=== PATIENT | male | born 1940 | race Caucasian/White ===

== ENCOUNTER 2016-06-20 13:40 | Outpatient (CLI) | payer MEDICARE, OTHER | END 2016-06-20 13:41 | disposition home or self-care (01) | DX: R79.9 Abnormal finding of blood chemistry, unspecified (principal); N28.9 Disorder of kidney and ureter, unspecified ==

== ENCOUNTER 2017-03-25 09:00 | Outpatient (CLI) | payer MEDICARE, OTHER ==
[2017-03-25 12:43] LABS: BASOPHILS % (AUTO) 0.4 %; EOSINOPHILS # (AUTO) 0.1 10^3/uL (0.0-0.7); EOSINOPHILS % (AUTO) 1.9 %; HCT - HEMATOCRIT 43.2 % (42.0-52.0); HGB - HEMOGLOBIN 14.8 g/dL (14.0-18.0); LYMPHOCYTES # (AUTO) 1.3 10^3/uL (1.5-3.5); LYMPHOCYTES % (AUTO) 17.3 %; MEAN CORPUSCULAR HEMOGLOBIN 30.3 pg (27.0-31.0); MEAN CORPUSCULAR HGB CONC 34.2 g/dL (32.0-36.0); MEAN CORPUSCULAR VOLUME 88.4 fL (80.0-94.0); MEAN PLATELET VOLUME 8.5 fL (7.4-11.4); MONOCYTES # (AUTO) 0.8 10^3/uL (0.0-1.0); MONOCYTES % (AUTO) 10.7 %; NEUTROPHILS # (AUTO) 5.3 10^3/uL (1.5-6.6); NEUTROPHILS % (AUTO) 69.7 %; NUCLEATED RED BLOOD CELLS AUTO 0.1 /100WBC; RED BLOOD COUNT 4.89 10^6/uL (4.70-6.10); RED CELL DISTRIBUTION WIDTH 13.6 % (12.0-15.0); UNCORRECTED WHITE BLOOD COUNT 7.6 x10^3/uL; WHITE BLOOD COUNT 7.6 x10^3/uL (4.8-10.8)
[2017-03-25 13:25] LABS: ALBUMIN/GLOBULIN RATIO 1.2 (1.0-2.2); BILIRUBIN,TOTAL 0.5 mg/dL (0.2-1.0); BUN - BLOOD UREA NITROGEN 15 mg/dL (6-20); CALCIUM 9.1 mg/dL (8.5-10.3); CARBON DIOXIDE - CO2 27 mmol/L (21-32); CHLORIDE 97 mmol/L (101-111); CHOLESTEROL 146 mg/dL; CREATININE 1.2 mg/dL (0.6-1.2); GFR - MDRD 59 (>89); GLUCOSE 123 mg/dL (70-100); HDL CHOLESTEROL 48 mg/dL; LDL/HDL RATIO 1.4 (<3.6); POTASSIUM 3.3 mmol/L (3.5-5.0); SODIUM 134 mmol/L (135-145); TRIGLYCERIDES 155 mg/dL; VLDL CHOLESTEROL 31 mg/dL
== END 2017-03-25 09:01 | disposition home or self-care (01) ==
LOC: LAB.WCP 09:00
PROVIDERS: ATTEND Physician Assistant Medical
DX: N28.9 Disorder of kidney and ureter, unspecified (principal); R79.9 Abnormal finding of blood chemistry, unspecified; Z51.81 Encounter for therapeutic drug level monitoring; Z79.899 Other long term (current) drug therapy; E78.5 Hyperlipidemia, unspecified; D64.9 Anemia, unspecified
CPT/HCPCS: 36415; 80053; 80061; 85025

== ENCOUNTER 2017-06-05 08:00 | Outpatient (CLI) | payer MEDICARE, OTHER ==
[2017-06-05 13:24] LABS: CALCIUM 8.6 mg/dL (8.5-10.3); CREATININE 1.2 mg/dL (0.6-1.2)
[2017-06-05 13:58] LABS: HB2 TOTAL 15.1 g/dL; HEMOGLOBIN A1C 0.63 g/dL
== END 2017-06-05 08:01 | disposition home or self-care (01) ==
LOC: LAB.WCP 08:00
PROVIDERS: ATTEND Physician Assistant Medical
DX: R73.9 Hyperglycemia, unspecified (principal)
CPT/HCPCS: 36415; 80048; 83036

== ENCOUNTER 2017-12-04 08:32 | Outpatient (CLI) | payer MEDICARE, OTHER ==
[2017-12-04 13:14] LABS: BASOPHILS % (AUTO) 0.5 %; EOSINOPHILS # (AUTO) 0.2 10^3/uL (0.0-0.7); EOSINOPHILS % (AUTO) 2.7 %; HGB - HEMOGLOBIN 13.7 g/dL (14.0-18.0); LYMPHOCYTES # (AUTO) 1.3 10^3/uL (1.5-3.5); LYMPHOCYTES % (AUTO) 16.8 %; MEAN CORPUSCULAR HEMOGLOBIN 30.4 pg (27.0-31.0); MEAN CORPUSCULAR HGB CONC 33.4 g/dL (32.0-36.0); MEAN PLATELET VOLUME 8.6 fL (7.4-11.4); MONOCYTES # (AUTO) 0.9 10^3/uL (0.0-1.0); MONOCYTES % (AUTO) 10.8 %; NEUTROPHILS # (AUTO) 5.5 10^3/uL (1.5-6.6); NEUTROPHILS % (AUTO) 69.2 %; PLT - PLATELET COUNT 234 10^3/uL (130-450); RED BLOOD COUNT 4.49 10^6/uL (4.70-6.10); RED CELL DISTRIBUTION WIDTH 14.2 % (12.0-15.0); WHITE BLOOD COUNT 7.9 x10^3/uL (4.8-10.8)
[2017-12-04 13:38] LABS: ALBUMIN 3.8 g/dL (3.2-5.5); ALBUMIN/GLOBULIN RATIO 1.1 (1.0-2.2); ALKALINE PHOSPHATASE 76 IU/L (42-121); ALT ALANINE AMINOTRANSFERASE 17 IU/L (10-60); AST ASPARTATE AMINOTRANSFERASE 27 IU/L (10-42); BILIRUBIN,TOTAL 0.8 mg/dL (0.2-1.0); BUN - BLOOD UREA NITROGEN 12 mg/dL (6-20); CALCIUM 8.9 mg/dL (8.5-10.3); CARBON DIOXIDE - CO2 30 mmol/L (21-32); CHLORIDE 97 mmol/L (101-111); CHOL/HDL RATIO 2.8 (<5.0); CHOLESTEROL 144 mg/dL; CREATININE 1.2 mg/dL (0.6-1.2); GFR - MDRD 59 (>89); GLUCOSE 124 mg/dL (70-100); HDL CHOLESTEROL 52 mg/dL; LDL CHOLESTEROL,CALCULATED 67 mg/dL; LDL/HDL RATIO 1.3 (<3.6); SODIUM 138 mmol/L (135-145); TOTAL PROTEIN 7.4 g/dL (6.7-8.2); VLDL CHOLESTEROL 25 mg/dL
[2017-12-04 13:43] LABS: HB2 TOTAL 15.5 g/dL; HEMOGLOBIN A1C 0.66 g/dL
== END 2017-12-04 08:33 | disposition home or self-care (01) ==
LOC: LAB.WCP 08:32
PROVIDERS: ATTEND Physician Assistant Medical
DX: R73.9 Hyperglycemia, unspecified (principal); E78.5 Hyperlipidemia, unspecified; D64.9 Anemia, unspecified
CPT/HCPCS: 36415; 80053; 80061; 83036; 83721; 85025

== ENCOUNTER 2018-07-22 08:00 | Outpatient (CLI) | payer MEDICARE, OTHER ==
[2018-07-22 13:37] LABS: HEMOGLOBIN A1C 0.66 g/dL; HEMOGLOBIN A1C % 6.2 % (4.6-6.2)
[2018-07-22 13:55] LABS: ALBUMIN 4.1 g/dL (3.2-5.5); ALBUMIN/GLOBULIN RATIO 1.2 (1.0-2.2); ALKALINE PHOSPHATASE 74 IU/L (42-121); ALT ALANINE AMINOTRANSFERASE 13 IU/L (10-60); AST ASPARTATE AMINOTRANSFERASE 22 IU/L (10-42); BILIRUBIN,TOTAL 0.9 mg/dL (0.2-1.0); BUN - BLOOD UREA NITROGEN 18 mg/dL (6-20); CALCIUM 9.1 mg/dL (8.5-10.3); CARBON DIOXIDE - CO2 28 mmol/L (21-32); CHLORIDE 98 mmol/L (101-111); CHOL/HDL RATIO 2.9 (<5.0); CHOLESTEROL 134 mg/dL; CREATININE 1.4 mg/dL (0.6-1.2); GFR - MDRD 49 (>89); GLUCOSE 134 mg/dL (70-100); HDL CHOLESTEROL 46 mg/dL; LDL CHOLESTEROL,CALCULATED 58 mg/dL; LDL/HDL RATIO 1.3 (<3.6); SODIUM 137 mmol/L (135-145); TOTAL PROTEIN 7.5 g/dL (6.7-8.2); VLDL CHOLESTEROL 30 mg/dL
[2018-07-22 16:31] LABS: BASOPHILS # (AUTO) 0.1 10^3/uL (0.0-0.1); BASOPHILS % (AUTO) 0.9 %; EOSINOPHILS # (AUTO) 0.2 10^3/uL (0.0-0.7); EOSINOPHILS % (AUTO) 2.6 %; HGB - HEMOGLOBIN 13.9 g/dL (14.0-18.0); LYMPHOCYTES # (AUTO) 1.6 10^3/uL (1.5-3.5); LYMPHOCYTES % (AUTO) 19.4 %; MEAN CORPUSCULAR HEMOGLOBIN 29.3 pg (27.0-31.0); MEAN CORPUSCULAR HGB CONC 33.2 g/dL (32.0-36.0); MEAN CORPUSCULAR VOLUME 88.3 fL (80.0-94.0); MEAN PLATELET VOLUME 7.5 fL (7.4-11.4); MONOCYTES # (AUTO) 0.9 10^3/uL (0.0-1.0); MONOCYTES % (AUTO) 11.5 %; NEUTROPHILS # (AUTO) 5.3 10^3/uL (1.5-6.6); NEUTROPHILS % (AUTO) 65.6 %; PLT - PLATELET COUNT 270 10^3/uL (130-450); RED BLOOD COUNT 4.74 10^6/uL (4.70-6.10); RED CELL DISTRIBUTION WIDTH 13.8 % (12.0-15.0); WHITE BLOOD COUNT 8.1 x10^3/uL (4.8-10.8)
== END 2018-07-22 23:59 | disposition home or self-care (01) ==
LOC: LAB.WCP 08:00
PROVIDERS: ATTEND Physician Assistant Medical
DX: R73.9 Hyperglycemia, unspecified (principal); E78.5 Hyperlipidemia, unspecified; D64.9 Anemia, unspecified
CPT/HCPCS: 36415; 80053; 80061; 83036; 83721; 85025

== ENCOUNTER 2018-08-03 08:09 | Outpatient (CLI) | payer MEDICARE, OTHER ==
--- NOTE | 2018-08-03 11:27 | XRAY Report ---
Reason: OSTEOARTHRITIS,KNEE BIALT Procedure Date: 08/03/2018 Accession Number: [id number] / [id number] Procedure: XR - Knee Standing BILAT CPT Code: FULL RESULT: EXAMS: 1. RIGHT KNEE RADIOGRAPHY 2. LEFT KNEE RADIOGRAPHY EXAM DATE:08/03/2018 09:13 AM. CLINICAL HISTORY:Osteoarthritis, bilateral knees. COMPARISON: XR BILAT KNEES 3 VIEWS 10/27/2007 8:10 AM. TECHNIQUE: 3 views each. FINDINGS: Right Knee: Bones: Normal. No fractures or bone lesions. Joints: There is loss of joint space in the medial compartment with [id number] articulation. No significant subchondral sclerosis or osteophyte. Small suprapatellar effusion. Soft Tissues: Normal. No soft tissue swelling. Left Knee: Bones: Normal. No fractures or bone lesions. Joints: Mild asymmetric joint space narrowing of the medial compartment. No significant osteophyte. No effusion. Soft Tissues: Normal. No soft tissue swelling. IMPRESSION: Asymmetric degenerative arthritis medial compartment of the right knee. RADIA
== END 2018-08-03 08:10 | disposition home or self-care (01) ==
LOC: DI 08:09
PROVIDERS: ATTEND Physician Assistant Medical
DX: M17.11 Unilateral primary osteoarthritis, right knee (principal)
CPT/HCPCS: 73565

== ENCOUNTER 2019-01-29 08:00 | Outpatient (CLI) | payer MEDICARE, OTHER ==
[2019-01-29 12:39] LABS: ALBUMIN 4.2 g/dL (3.2-5.5); ALBUMIN/GLOBULIN RATIO 1.2 (1.0-2.2); ALKALINE PHOSPHATASE 83 IU/L (42-121); ALT ALANINE AMINOTRANSFERASE 14 IU/L (10-60); AST ASPARTATE AMINOTRANSFERASE 21 IU/L (10-42); BILIRUBIN,TOTAL 0.6 mg/dL (0.2-1.0); BUN - BLOOD UREA NITROGEN 10 mg/dL (6-20); CALCIUM 8.8 mg/dL (8.5-10.3); CARBON DIOXIDE - CO2 28 mmol/L (21-32); CHLORIDE 93 mmol/L (101-111); CHOL/HDL RATIO 2.7 (<5.0); CHOLESTEROL 129 mg/dL; CREATININE 1.2 mg/dL (0.6-1.2); GFR - MDRD 59 (>89); GLUCOSE 128 mg/dL (70-100); HDL CHOLESTEROL 48 mg/dL; LDL CHOLESTEROL,CALCULATED 57 mg/dL; LDL/HDL RATIO 1.2 (<3.6); SODIUM 133 mmol/L (135-145); TOTAL PROTEIN 7.7 g/dL (6.7-8.2); VLDL CHOLESTEROL 24 mg/dL
== END 2019-01-29 23:59 | disposition home or self-care (01) ==
LOC: LAB.WCP 08:00
PROVIDERS: ATTEND Physician Assistant Medical
DX: E78.5 Hyperlipidemia, unspecified (principal)
CPT/HCPCS: 36415; 80053; 80061; 83721

== ENCOUNTER 2019-02-02 08:00 | Outpatient (CLI) | payer MEDICARE, OTHER ==
[2019-02-02 19:35] LABS: HB2 TOTAL 14.2 g/dL; HEMOGLOBIN A1C 0.58 g/dL; HEMOGLOBIN A1C % 5.9 % (4.6-6.2)
== END 2019-02-02 23:59 | disposition home or self-care (01) ==
LOC: LAB.WCP 08:00
PROVIDERS: ATTEND Physician Assistant Medical
DX: R73.9 Hyperglycemia, unspecified (principal)
CPT/HCPCS: 36415; 83036

== ENCOUNTER 2020-02-08 13:29 | Emergency (ER) | payer MEDICARE, OTHER ==
[2020-02-08] MEDS ORDERED: CHERRY SYRUP 10 ML UDC PO ONE (15:09)
[2020-02-08] MEDS ORDERED: DEXAMETHASONE 10 MG/ML VIAL PO STA (15:09)
--- NOTE | 2020-02-08 15:12 | ED Physician Documentation ---
PD HPI FEVER - Stated complaint Stated Complaint: FEVER - Chief complaint Chief Complaint: General - History obtained from History obtained from: Patient, Family - History of Present Illness Timing - onset: Today Timing duration: Minutes Timing details: Abrupt onset, Now resolved Associated symptoms: Chills, Nasal congestion, Dry cough, Dyspnea Contributing factors: COPD / asthma. No: Sick contact, Immunocompromised Similar symptoms before: Has not had sx before Recently seen: Not recently seen - Additional information Additional information: 79-year-old male with a history of COPD was in his usual state of health this morning when he awoke and he felt hot his took his temperature was elevated and he did not feel well. He was unable to describe his illness further than this. Just does not feel well. He denies any increase in his cough states he does have COPD he denies any change in his bowel or bladder denies any rushing to get to the bathroom. His fever has resolved and he feels well at this time.He has had a headache early in the morning Review of Systems Constitutional: reports: Fever, Fatigue Eyes: denies: Decreased vision Ears: denies: Ear pain Nose: reports: Congestion. denies: Rhinorrhea / runny nose Throat: denies: Sore throat Cardiac: denies: Chest pain / pressure, Palpitations, Pedal edema, Calf pain Respiratory: reports: Dyspnea, Cough GI: denies: Abdominal Pain, Nausea, Vomiting : denies: Dysuria, Frequency PD PAST MEDICAL HISTORY - Past Medical History Cardiovascular: Hypertension, Other Respiratory: Other Endocrine/Autoimmune: None GI: Other : Other HEENT: None Musculoskeletal: Osteoarthritis Derm: None - Past Surgical History Past Surgical History: Yes General: Colonoscopy - Present Medications Home Medications: Ambulatory Orders Medication Instructions Recorded Confirmed Hydrochlorothiazide 25 mg PO DAILY 09/19/13 11/20/15 Lisinopril [Prinivil] 20 mg PO DAILY 09/19/13 11/20/15 Metoprolol Tartrate 100 mg PO DAILY 09/19/13 11/20/15 Simvastatin [Zocor] 20 mg PO DAILY 09/19/13 11/20/15 Aspirin [Aspir-Low] 81 mg PO DAILY 08/14/15 11/20/15 Albuterol 0.5 mg INH DAILY 02/08/20 02/08/20 Amox/Clav 875/125 [Augmentin] 1 each PO Q12H #20 tablet 10/06/20 Cholecalciferol (Vitamin D3) 125 mcg PO DAILY 02/08/20 02/08/20 [Vitamin D3] Guaifenesin/Dextromethorphan 1 each PO DAILY 02/08/20 02/08/20 [Mucinex Dm ER 1,200-60 mg Tab] Methocarbamol [Robaxin-750] 750 mg PO TID PRN 02/08/20 02/08/20 Omeprazole 20 mg PO DAILY 02/08/20 02/08/20 Potassium Chloride [Micro-K] 10 meq PO DAILY 02/08/20 02/08/20 - Allergies Allergies/Adverse Reactions: Allergies Allergy/AdvReac Type Severity Reaction Status Date / Time narcotic sensative AdvReac Nausea Uncoded 02/08/20 13:42 - Social History Does the pt smoke?: No Smoking Status: Never smoker Does the pt drink ETOH?: No Does the pt have substance abuse?: No - Immunizations Immunizations are current?: Yes - POLST Patient has POLST: No PD ED PE NORMAL - Vitals Vital signs reviewed: Yes (Hypertensive) - General General: Alert and oriented X 3, No acute distress, Well developed/nourished - HEENT HEENT: Atraumatic, PERRL, EOMI, Other (Both TMs are erythematous along the umbo with rounding of the umbo and the right is worse than the left. 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, No motor deficit, No sensory deficit, Normal speech Eye Opening: Spontaneous Motor: Obeys Commands Verbal: Oriented GCS Score: 15 - Psych Psych: Normal mood, Normal affect Results - Vitals Vitals: Vital Signs - 24 hr 02/08/20 02/08/20 02/08/20 13:42 14:36 16:00 Temperature 36.4 C L 37.1 C Heart Rate 57 L 66 66 Respiratory 20 18 19 Rate Blood Pressure 131/67 H 125/84 H 116/72 O2 Saturation 98 100 99 Oxygen O2 Source Room air - Labs Labs: Laboratory Tests 02/08/20 02/08/20 02/08/20 15:08 15:33 15:33 WBC 6.8 RBC 4.50 L Hgb 13.6 L Hct 41.2 L MCV 91.6 MCH 30.2 MCHC 33.0 RDW 12.8 Plt Count 242 MPV 9.8 Neut # (Auto) 5.1 Lymph # (Auto) 0.8 L [place] # (Auto) 0.5 Eos # (Auto) 0.3 Baso # (Auto) 0.1 Absolute Nucleated RBC 0.00 Nucleated RBC % 0.0 Sodium 137 Potassium 3.9 Chloride 96 L Carbon Dioxide 30 Anion Gap 11.0 BUN 15 Creatinine 1.6 H Estimated GFR (MDRD) 42 L Glucose 127 H Lactic Acid Calcium 9.2 Total Bilirubin 0.8 AST 19 ALT 13 Alkaline Phosphatase 89 Total Protein 7.3 Albumin 4.1 Globulin 3.2 Albumin/Globulin Ratio 1.3 Lipase 25 Urine Color YELLOW Urine Clarity CLEAR Urine pH 7.0 Ur Specific [place] 1.020 Urine Protein NEGATIVE Urine Glucose (UA) NEGATIVE Urine Ketones TRACE Urine Occult Blood NEGATIVE Urine Nitrite NEGATIVE Urine Bilirubin NEGATIVE Urine Urobilinogen 1 (NORMAL) Ur Leukocyte Esterase NEGATIVE Ur Microscopic Review NOT INDICATED Urine Culture Comments NOT INDICATED 02/08/20 15:33 WBC RBC Hgb Hct MCV MCH MCHC RDW Plt Count MPV Neut # (Auto) Lymph # (Auto) [place] # (Auto) Eos # (Auto) Baso # (Auto) Absolute Nucleated RBC Nucleated RBC % Sodium Potassium Chloride Carbon Dioxide Anion Gap BUN Creatinine Estimated GFR (MDRD) Glucose Lactic Acid 1.6 Calcium Total Bilirubin AST ALT Alkaline Phosphatase Total Protein Albumin Globulin Albumin/Globulin Ratio Lipase Urine Color Urine Clarity Urine pH Ur Specific [place] Urine Protein Urine Glucose (UA) Urine Ketones Urine Occult Blood Urine Nitrite Urine Bilirubin Urine Urobilinogen Ur Leukocyte Esterase Ur Microscopic Review Urine Culture Comments - Rads (name of study) chest Radiology: Prelim report reviewed (Impression: No acute cardiopulmonary process demonstrated radiographically.), EMP read indepedently, See rad report PD MEDICAL DECISION MAKING - ED course Complexity details: reviewed results, re-evaluated patient, considered differential, d/w patient, d/w family ED course: 79-year-old male with a history of COPD was febrile this morning did not feel well he had no other specifics for his illness. On exam he has otitis bilaterally. He had no other findings on physical exam and laboratory and ancillary exam is also without findings specifically. He does look a bit dry on his chest x-ray. Departure - Departure Disposition: Home, Self Care Clinical Impression: Dehydration Otitis media Qualifiers: Otitis media type: suppurative Chronicity: acute Laterality: bilateral Recurrence: non-recurrent Spontaneous tympanic membrane rupture: without spontaneous rupture Qualified Code(s): H66.003 - Acute suppurative otitis media without spontaneous rupture of ear drum, bilateral Condition: Stable Instructions: ED Otitis Media Acute Adult Follow-Up: Jazmin Painter PA-C [Primary Care Provider] - Prescriptions: Amox/Clav 875/125 [Augmentin] 1 each PO Q12H #20 tablet
--- NOTE | 2020-02-08 15:35 | XRAY Report ---
PROCEDURE: Chest 1 View X-Ray INDICATIONS: Shortness of breath TECHNIQUE: One view of the chest was acquired. COMPARISON: 04/17/2017 FINDINGS: Surgical changes and devices: None. Lungs and pleura: No pleural effusions or pneumothorax. Lungs are clear. Mediastinum: Mediastinal contours appear normal. Heart size is normal. Bones and chest wall: No suspicious bony lesions. Osteophytic changes of both humeral joints. Overl [place] soft tissues appear unremarkable. IMPRESSION: No acute cardiac pulmonary process demonstrated radiographically. Reviewed by: Corona Amador MD on 02/08/2020 3:34 PM PDT Approved by: Corona Amador MD on 02/08/2020 3:34 PM PDT Station ID: [id number]
[2020-02-08 15:41] LABS: BILIRUBIN,URINE NEGATIVE (NEGATIVE); GLUCOSE, URINE (UA) NEGATIVE (NEGATIVE); KETONES,URINE (UA) TRACE mg/dL (NEGATIVE); LEUKOCYTE ESTERASE, URINE NEGATIVE (NEGATIVE); NITRITE,URINE NEGATIVE (NEGATIVE); OCCULT BLOOD,URINE NEGATIVE (NEGATIVE); PROTEIN,URINE NEGATIVE (NEGATIVE); UROBILINOGEN,URINE 1 (NORMAL) E.U./dL (NORMAL)
[2020-02-08 15:44] LABS: CLARITY,URINE CLEAR (CLEAR)
[2020-02-08 15:52] LABS: BASOPHILS # (AUTO) 0.1 10^3/uL (0.0-0.1); BASOPHILS % (AUTO) 0.7 %; EOSINOPHILS # (AUTO) 0.3 10^3/uL (0.0-0.7); HGB - HEMOGLOBIN 13.6 g/dL (14.0-18.0); LYMPHOCYTES # (AUTO) 0.8 10^3/uL (1.5-3.5); LYMPHOCYTES % (AUTO) 12.1 %; MEAN CORPUSCULAR HEMOGLOBIN 30.2 pg (27.0-31.0); MEAN CORPUSCULAR VOLUME 91.6 fL (80.0-94.0); MEAN PLATELET VOLUME 9.8 fL (7.4-11.4); MONOCYTES # (AUTO) 0.5 10^3/uL (0.0-1.0); MONOCYTES % (AUTO) 7.4 %; NEUTROPHILS # (AUTO) 5.1 10^3/uL (1.5-6.6); NEUTROPHILS % (AUTO) 75.4 %; PLT - PLATELET COUNT 242 10^3/uL (130-450); RED CELL DISTRIBUTION WIDTH 12.8 % (12.0-15.0); WHITE BLOOD COUNT 6.8 x10^3/uL (4.8-10.8)
[2020-02-08 16:00] LABS: ALBUMIN 4.1 g/dL (3.2-5.5); ALBUMIN/GLOBULIN RATIO 1.3 (1.0-2.2); BILIRUBIN,TOTAL 0.8 mg/dL (0.2-1.0); CALCIUM 9.2 mg/dL (8.5-10.3); CREATININE 1.6 mg/dL (0.6-1.2); TOTAL PROTEIN 7.3 g/dL (6.7-8.2)
[2020-02-08] MEDS ORDERED: SODIUM CHLORIDE 0.9% 1,000 ML IV STA (16:11)
[2020-02-08 17:30] VITALS: BP 126/78
== END 2020-02-08 17:35 | disposition home or self-care (01) ==
LOC: ED 13:29
DX: E86.0 Dehydration (principal); H66.003 Acute suppurative otitis media without spontaneous rupture of ear drum, bilateral
CPT/HCPCS: 36415; 71045; 80053; 81003; 83605; 83690; 85025; 87040; 96360; 99283; 99284; A9270; 81001; 87086

== ENCOUNTER 2020-03-31 08:00 | Outpatient (CLI) | payer MEDICARE, OTHER ==
[2020-03-31 19:57] LABS: ALBUMIN/GLOBULIN RATIO 1.2 (1.0-2.2); ALKALINE PHOSPHATASE 87 IU/L (42-121); ALT ALANINE AMINOTRANSFERASE 11 IU/L (10-60); AST ASPARTATE AMINOTRANSFERASE 17 IU/L (10-42); BILIRUBIN,TOTAL 0.6 mg/dL (0.2-1.0); BUN - BLOOD UREA NITROGEN 14 mg/dL (6-20); CALCIUM 8.8 mg/dL (8.5-10.3); CARBON DIOXIDE - CO2 28 mmol/L (21-32); CHLORIDE 102 mmol/L (101-111); CHOL/HDL RATIO 3.1 (<5.0); CHOLESTEROL 151 mg/dL; CREATININE 1.5 mg/dL (0.6-1.2); GLUCOSE 92 mg/dL (70-100); HDL CHOLESTEROL 49 mg/dL; LDL CHOLESTEROL,CALCULATED 78 mg/dL; LDL/HDL RATIO 1.6 (<3.6); SODIUM 138 mmol/L (135-145); TOTAL PROTEIN 7.4 g/dL (6.7-8.2); VLDL CHOLESTEROL 24 mg/dL
[2020-03-31 20:58] LABS: HEMOGLOBIN A1c% 5.7 % (4.27-6.07)
== END 2020-03-31 23:59 | disposition home or self-care (01) ==
LOC: LAB.WCP 08:00
PROVIDERS: ATTEND Physician Assistant Medical
DX: R73.9 Hyperglycemia, unspecified (principal); E78.5 Hyperlipidemia, unspecified
CPT/HCPCS: 36415; 80053; 80061; 83036; 83721

== ENCOUNTER 2020-04-05 08:37 | Outpatient (CLI) | payer MEDICARE, OTHER | END 2020-04-05 08:38 | disposition critical access hospital (66) | LOC: EMS 08:37 | PROVIDERS: ATTEND Surgery | DX: M54.9 Dorsalgia, unspecified (principal); R06.00 Dyspnea, unspecified | CPT/HCPCS: A0425; A0427 ==

== ENCOUNTER 2020-04-05 08:41 | Emergency (ER) | payer MEDICARE, OTHER ==
--- NOTE | 2020-04-05 08:47 | ED Physician Documentation ---
PD HPI BACK PAIN - Stated complaint Stated Complaint: GLF - History obtained from History obtained from: Patient - Additional information Additional information: 79-year-old gentleman with history of COPD, has been having some vomiting and d iarrhea over the last couple of days. Last night he had a simple mechanical fall hitting his back on the door. Pain was not too bad at first but now this morning he is having some difficulty with movement, pain taking a deep breath and more shortness of breath than normal. He declines pain medication on initial evaluation. No other injuries. No loss of consciousness or syncope. Review of Systems Ten Systems: 10 systems reviewed and negative Constitutional: denies: Fever, Chills Cardiac: denies: Chest pain / pressure Respiratory: reports: Dyspnea, Cough GI: denies: Abdominal Pain, Nausea, Vomiting Musculoskeletal: denies: Pain with weight bearing Neurologic: denies: Headache, Head injury, LOC PD PAST MEDICAL HISTORY - Past Medical History Cardiovascular: Hypertension, Other Respiratory: Other Endocrine/Autoimmune: None GI: Other : Other HEENT: None Musculoskeletal: Osteoarthritis Derm: None - Past Surgical History Past Surgical History: Yes General: Colonoscopy - Present Medications Home Medications: Ambulatory Orders Medication Instructions Recorded Confirmed Hydrochlorothiazide 25 mg PO DAILY 09/19/13 11/20/15 Lisinopril [Prinivil] 20 mg PO DAILY 09/19/13 11/20/15 Metoprolol Tartrate 100 mg PO DAILY 09/19/13 11/20/15 Simvastatin [Zocor] 20 mg PO DAILY 09/19/13 11/20/15 Aspirin [Aspir-Low] 81 mg PO DAILY 08/14/15 11/20/15 Albuterol 0.5 mg INH DAILY 02/08/20 02/08/20 Cholecalciferol (Vitamin D3) 125 mcg PO DAILY 02/08/20 02/08/20 [Vitamin D3] Guaifenesin/Dextromethorphan 1 each PO DAILY 02/08/20 02/08/20 [Mucinex Dm ER 1,200-60 mg Tab] Methocarbamol [Robaxin-750] 750 mg PO TID PRN 02/08/20 02/08/20 Omeprazole 20 mg PO DAILY 02/08/20 02/08/20 Potassium Chloride [Micro-K] 20 meq PO DAILY 02/08/20 02/08/20 Budesonide [Pulmicort] 0.25 mg IH DAILY 04/05/20 04/05/20 Ipratropium/Albuterol [Duoneb] 1 DAILY 04/05/20 - Allergies Allergies/Adverse Reactions: Allergies Allergy/AdvReac Type Severity Reaction Status Date / Time narcotic sensative AdvReac Nausea Uncoded 04/05/20 08:53 - Social History Does the pt smoke?: No Smoking Status: Never smoker Does the pt drink ETOH?: No Does the pt have substance abuse?: No - Immunizations Immunizations are current?: Yes - POLST Patient has POLST: No PD ED PE NORMAL - Vitals Vital signs reviewed: Yes - General General: Alert and oriented X 3, No acute distress - HEENT HEENT: PERRL, EOMI - Neck Neck: Supple, no meningeal sign, No bony TTP - Cardiac Cardiac: RRR, No murmur - Respiratory Respiratory: No respiratory distress, Other (Diminished throughout with mild expiratory wheezes, per the paramedics it is better after albuterol in route) - Abdomen Abdomen: Non tender - Back Back: Other (There is a large contusion/abrasion over the mid and upper thoracic spine and some tenderness to the right posterior ribs.) - Derm Derm: Normal color, Warm and dry - Extremities Extremities: No edema, No calf tenderness / cord - Neuro Neuro: Alert and oriented X 3, Normal speech Results - Vitals Vitals: Vital Signs - 24 hr 04/05/20 04/05/20 08:41 09:00 Temperature 36.6 C Heart Rate 75 78 Respiratory 18 15 Rate Blood Pressure 123/96 H 144/103 H O2 Saturation 97 95 Oxygen O2 Source Room air - Labs Labs: Laboratory Tests 04/05/20 04/05/20 09:09 09:09 WBC 7.0 RBC 4.56 L Hgb 13.6 L Hct 43.4 MCV 95.2 H MCH 29.8 MCHC 31.3 L RDW 12.9 Plt Count 206 MPV 10.3 Neut # (Auto) 5.2 Lymph # (Auto) 1.1 L [place] # (Auto) 0.5 Eos # (Auto) 0.3 Baso # (Auto) 0.0 Absolute Nucleated RBC 0.00 Nucleated RBC % 0.0 Sodium 141 Potassium 3.7 Chloride 103 Carbon Dioxide 26 Anion Gap 12.0 BUN 13 Creatinine 1.3 H Estimated GFR (MDRD) 54 L Glucose 126 H Calcium 9.0 Total Bilirubin 0.7 AST 19 ALT 12 Alkaline Phosphatase 85 Total Protein 7.1 Albumin 4.0 Globulin 3.1 Albumin/Globulin Ratio 1.3 Lipase 26 - Rads (name of study) CT Chest and T spine Radiology: EMP read contemporaneously (Probably a mild T8 compression fracture without other fractures. Mild emphysema without acute pulmonary findings.) PD MEDICAL DECISION MAKING - ED course ED course: 79-year-old gentleman presents after a fall last night, this was preceded by vomiting and diarrhea over the last few days which he felt was from a new steroid inhaled prescription, budesonide. There was no loss of consciousness or syncope. From a breathing standpoint he is already feeling better after albuterol on the way here. Imaging demonstrates a possible T8 mild compression fracture. I offered either oral steroids or pain medications for this which he declined, he also does not want any meds for his GI symptoms. He seems to want to minimize how many medications he is taking. Also declined a second breathing treatment here. Departure - Departure Disposition: 01 Home, Self Care Clinical Impression: Fall Qualifiers: Encounter type: initial encounter Qualified Code(s): W19.XXXA - Unspecified fall, initial encounter Compression fracture of T8 vertebra Qualifiers: Encounter type: initial encounter Qualified Code(s): S22.060A - Wedge compression fracture of T7-T8 vertebra, initial encounter for closed fracture COPD (chronic obstructive pulmonary disease) Qualifiers: COPD type: chronic bronchitis Chronic bronchitis type: unspecified Qualified Code(s): J42 - Unspecified chronic bronchitis Condition: Good Record reviewed to determine appropriate education?: Yes Instructions: ED Fx Comp Vertebral Comments: Imaging today demonstrates what is probably a very mild compression fracture of your eighth thoracic vertebrae. No specific treatment is necessary and you can take Tylenol as needed for pain. Return if worsening or if new symptoms develop. Follow-up with your doctor within the week for recheck.
[2020-04-05 09:15] LABS: BASOPHILS % (AUTO) 0.4 %; EOSINOPHILS # (AUTO) 0.3 10^3/uL (0.0-0.7); EOSINOPHILS % (AUTO) 3.7 %; HGB - HEMOGLOBIN 13.6 g/dL (14.0-18.0); LYMPHOCYTES # (AUTO) 1.1 10^3/uL (1.5-3.5); MEAN CORPUSCULAR HEMOGLOBIN 29.8 pg (27.0-31.0); MEAN CORPUSCULAR HGB CONC 31.3 g/dL (32.0-36.0); MEAN CORPUSCULAR VOLUME 95.2 fL (80.0-94.0); MEAN PLATELET VOLUME 10.3 fL (7.4-11.4); MONOCYTES # (AUTO) 0.5 10^3/uL (0.0-1.0); NEUTROPHILS # (AUTO) 5.2 10^3/uL (1.5-6.6); NEUTROPHILS % (AUTO) 73.5 %; PLT - PLATELET COUNT 206 10^3/uL (130-450); RED BLOOD COUNT 4.56 10^6/uL (4.70-6.10); RED CELL DISTRIBUTION WIDTH 12.9 % (12.0-15.0)
[2020-04-05 09:28] LABS: ALBUMIN/GLOBULIN RATIO 1.3 (1.0-2.2); BILIRUBIN,TOTAL 0.7 mg/dL (0.2-1.0); CREATININE 1.3 mg/dL (0.6-1.2); TOTAL PROTEIN 7.1 g/dL (6.7-8.2)
--- NOTE | 2020-04-05 09:32 | CT Report ---
PROCEDURE: CHEST WO INDICATIONS: Mid/upper back injury TECHNIQUE: Noncontrast 5 mm thick sections acquired from the pulmonary apices to the posterior costophrenic angl es. 7 mm thick coronal and sagittal MIP reformats were then acquired. For radiation dose reduction, the following was used: automated exposure control, adjustment of mA and/or kV according to patient size. COMPARISON: 08/14/2015 CT chest with contrast FINDINGS: Image quality: Excellent. Lungs and pleura: Very mild centrilobular emphysema. No acute air space opacities. No pleural effus ions or pneumothorax. Central and peripheral airways are patent and normal in caliber. Mediastinum: Heart size is normal. No pericardial effusion. No mediastinal adenopathy by size crit eria. Thoracic aorta and central pulmonary arteries are normal in size. Esophagus is normal in jose shravan. No hiatal hernia. Bones and chest wall: No suspicious bony lesions. No vertebral body compression fractures. No axil tianna or supraclavicular adenopathy by size criteria. The thyroid is normal in size. Abdomen: Visualized upper abdominal solid organs and bowel loops appear normal in the absence of con trast. Remote cholecystectomy. IMPRESSION: 1. Very mild centrilobular emphysema. 2. Otherwise unremarkable noncontrast chest CT. No acute fracture identified. Reviewed by: Aidan Denny MD on 04/05/2020 9:31 AM [facility] Approved by: Aidan Denny MD on 04/05/2020 9:31 AM PST Station ID: [id number]
--- NOTE | 2020-04-05 09:38 | CT Report ---
PROCEDURE: THORACIC SPINE WO INDICATIONS: Mid/upper back injury TECHNIQUE: Noncontrast 3 mm thick sections acquired through the region of interest in the thoracic spine. Sagit carrie and coronal reformats were then constructed. For radiation dose reduction, the following was used : automated exposure control, adjustment of mA and/or kV according to patient size. COMPARISON: CT chest dated 08/14/2015, CT chest from today. FINDINGS: Image quality: Excellent. Bones: There is normal overall bony alignment. There is a probable very subtle acute superior endpla te compression fracture of T8, with approximately 20% midportion vertebral body height loss. No other compression fractures identified. No suspicious sclerotic or lytic bony lesions. Central spinal can al is of normal overall caliber. Soft tissues: No paravertebral masses or hematomas. Visualized posteromedial lungs appear clear. IMPRESSION: Probable mild acute superior endplate compression of T8. Comment: Consider MRI to identify the presence or absence of edema and T8, and establish fracture acu ity. Reviewed by: Aidan Denny MD on 04/05/2020 9:37 AM PST Approved by: Aidan Denny MD on 04/05/2020 9:37 AM PST Station ID: [id number]
[2020-04-05 09:56] VITALS: BP 140/83
== END 2020-04-05 10:11 | disposition home or self-care (01) ==
LOC: EDUNIT# → ED 08:41
DX: S22.060A Wedge compression fracture of T7-T8 vertebra, initial encounter for closed fracture (principal); W01.198A Fall on same level from slipping, tripping and stumbling with subsequent striking against other object, initial encounter; Y93.89 Activity, other specified; J43.2 Centrilobular emphysema; R11.10 Vomiting, unspecified; R19.7 Diarrhea, unspecified; I10 Essential (primary) hypertension; Z79.82 Long term (current) use of aspirin
CPT/HCPCS: 36415; 71250; 72128; 80053; 83690; 85025; 99284

== ENCOUNTER 2020-04-17 10:34 | Emergency (ER) | payer MEDICARE, OTHER ==
--- NOTE | 2020-04-17 11:01 | ED Physician Documentation ---
PD HPI DYSPNEA - Stated complaint Stated Complaint: SOA - Chief complaint Chief Complaint: Resp - History obtained from History obtained from: Patient - Additional information Additional information: He had a ground-level fall a couple of weeks ago hitting his back and the right side of the chest. He was seen here and CT of the chest and thoracic spine was done on April 05 demonstrating a mild acute superior endplate fracture of T8. Since then he has had progressive shortness of breath and back and chest pain especially with coughing although his cough is not any worse than usual given his usual COPD. Review of Systems Constitutional: reports: Reviewed and negative Eyes: reports: Reviewed and negative Ears: reports: Reviewed and negative Nose: reports: Reviewed and negative Throat: reports: Reviewed and negative Cardiac: reports: Reviewed and negative PD PAST MEDICAL HISTORY - Past Medical History Cardiovascular: Hypertension, Other Respiratory: Other Endocrine/Autoimmune: None GI: Other : Other HEENT: None Musculoskeletal: Osteoarthritis Derm: None - Past Surgical History Past Surgical History: Yes General: Colonoscopy - Present Medications Home Medications: Ambulatory Orders Medication Instructions Recorded Confirmed Hydrochlorothiazide 25 mg PO DAILY 09/19/13 11/20/15 Lisinopril [Prinivil] 20 mg PO DAILY 09/19/13 11/20/15 Metoprolol Tartrate 100 mg PO DAILY 09/19/13 11/20/15 Simvastatin [Zocor] 20 mg PO DAILY 09/19/13 11/20/15 Aspirin [Aspir-Low] 81 mg PO DAILY 08/14/15 11/20/15 Albuterol 0.5 mg INH DAILY 02/08/20 02/08/20 Cholecalciferol (Vitamin D3) 125 mcg PO DAILY 02/08/20 02/08/20 [Vitamin D3] Guaifenesin/Dextromethorphan 1 each PO DAILY 02/08/20 02/08/20 [Mucinex Dm ER 1,200-60 mg Tab] Methocarbamol [Robaxin-750] 750 mg PO TID PRN 02/08/20 02/08/20 Omeprazole 20 mg PO DAILY 02/08/20 02/08/20 Potassium Chloride [Micro-K] 20 meq PO DAILY 02/08/20 02/08/20 Budesonide [Pulmicort] 0.25 mg IH DAILY 04/05/20 04/05/20 Ipratropium/Albuterol [Duoneb] 1 DAILY 04/05/20 Ondansetron Odt [Zofran] 4 mg TL Q6H PRN #20 tablet 04/05/20 Oxycodone HCl/Acetaminophen 1 - 2 each PO Q6H PRN #20 tablet 04/05/20 [Percocet 5-325 mg Tablet] Oxycodone HCl/Acetaminophen 1 - 2 each PO Q6H PRN #30 tablet 04/17/20 [Percocet 5-325 mg Tablet] - Allergies Allergies/Adverse Reactions: Allergies Allergy/AdvReac Type Severity Reaction Status Date / Time narcotic sensative AdvReac Nausea Uncoded 04/17/20 10:43 - Social History Does the pt smoke?: No Smoking Status: Never smoker Does the pt drink ETOH?: No Does the pt have substance abuse?: No - Immunizations Immunizations are current?: Yes - POLST Patient has POLST: No PD ED PE NORMAL - Vitals Vital signs reviewed: Yes - General General: Alert and oriented X 3, No acute distress - HEENT HEENT: PERRL, EOMI - Neck Neck: Supple, no meningeal sign, No bony TTP - Cardiac Cardiac: RRR, No murmur - Respiratory Respiratory: Other (Diminished breath sounds throughout with mild expiratory wheezes. Minimally labored but speaking full sentences.) - Abdomen Abdomen: Non tender - Back Back: No CVA TTP, No spinal TTP - Derm Derm: Normal color, Warm and dry - Extremities Extremities: No edema, No calf tenderness / cord - Neuro Neuro: Alert and oriented X 3, Normal speech Results - Vitals Vitals: Vital Signs - 24 hr 04/17/20 04/17/20 10:39 11:00 Temperature 36.7 C Heart Rate 90 83 Respiratory 16 14 Rate Blood Pressure 150/96 H 95/77 O2 Saturation 95 99 Oxygen O2 Source Room air - EKG (time done) 1106 Rate: Rate (enter#) (77) Rhythm: NSR (He has a sinus pause following A PVC) Smilax: Normal Intervals: Normal [place] QRS: Normal Ischemia: Non specific changes. No: ST elevation c/w ischemia, ST depression PD MEDICAL DECISION MAKING - ED course ED course: 79-year-old gentleman with known T8 compression fracture that is 2 weeks old has run out of his narcotics and pain is worse again. He is feeling better after a shot of Dilaudid. Chest x-ray interpreted contemporaneously by me shows no acute issues. Departure - Departure Disposition: 01 Home, Self Care Clinical Impression: Compression fracture of T8 vertebra Qualifiers: Encounter type: initial encounter Qualified Code(s): S22.060A - Wedge compression fracture of T7-T8 vertebra, initial encounter for closed fracture Condition: Good Record reviewed to determine appropriate education?: Yes Instructions: ED Fx Comp Vertebral Prescriptions: Oxycodone HCl/Acetaminophen [Percocet 5-325 mg Tablet] 1 - 2 each PO Q6H PRN #30 tablet PRN Reason: pain Comments: Call your doctor to arrange a follow-up appointment, make the next available appointment. In the interim, return anytime if worse or if new symptoms develop. Do not drink or drive while taking narcotic pain medication. Note that many narcotic pain relievers also contain Tylenol/acetaminophen. Please ensure that your total dose of acetaminophen from all sources does not exceed 3 g (3000 mg) per day. You may get constipated while on this medication. Take a stool softener such as Colace twice a day while you are on it. Also add an [id number] laxative such as senna or MiraLAX on any day that you do not have a bowel movement. If you received a narcotic pain medication or sedative while in the emergency department, do not drive for the next 24 hours.
[2020-04-17] MEDS ORDERED: CHERRY SYRUP 10 ML UDC PO ONE (11:03)
[2020-04-17] MEDS ORDERED: ONDANSETRON ODT 4 MG TABLET TL STA (11:03)
[2020-04-17] MEDS ORDERED: HYDROmorphone 1 MG/ML CARPUJECT IM STA (11:03)
[2020-04-17] MEDS ORDERED: DEXAMETHASONE 10 MG/ML VIAL PO STA (11:03)
--- NOTE | 2020-04-17 11:38 | XRAY Report ---
PROCEDURE: Chest 1 View X-Ray INDICATIONS: Chest pain TECHNIQUE: One view of the chest was acquired. COMPARISON: CXR 02/08/2020. CT thoracic spine at 04/05/2020. FINDINGS: Surgical changes and devices: None. Lungs and pleura: No pleural effusions or pneumothorax. Lungs are clear. Mediastinum: Mediastinal contours appear normal. Heart size is normal. Bones and chest wall: No suspicious bony lesions. Overlying soft tissues appear unremarkable. IMPRESSION: No acute cardiopulmonary abnormality. Reviewed by: Jovan Herrera MD on 04/17/2020 10:36 AM [facility] Approved by: Jovan Herrera MD on 04/17/2020 10:36 AM [facility] Station ID: [id number]
[2020-04-17 12:18] VITALS: BP 143/85
== END 2020-04-17 12:25 | disposition home or self-care (01) ==
LOC: ED 10:34
DX: S22.060A Wedge compression fracture of T7-T8 vertebra, initial encounter for closed fracture (principal); W18.30XA Fall on same level, unspecified, initial encounter; J44.9 Chronic obstructive pulmonary disease, unspecified; R07.9 Chest pain, unspecified; I49.3 Ventricular premature depolarization; I10 Essential (primary) hypertension; Z79.82 Long term (current) use of aspirin
CPT/HCPCS: 71045; 93005; 96372; 99284; A9270; J1170; Q0162; 80053; 83690; 84484; 85025

== ENCOUNTER 2020-11-09 16:49 | Outpatient (CLI) | payer MEDICARE, OTHER ==
[2020-11-09 20:51] LABS: BASOPHILS # (AUTO) 0.1 10^3/uL (0.0-0.1); BASOPHILS % (AUTO) 0.5 %; EOSINOPHILS # (AUTO) 0.5 10^3/uL (0.0-0.7); HCT - HEMATOCRIT 42.9 % (42.0-52.0); HGB - HEMOGLOBIN 14.1 g/dL (14.0-18.0); LYMPHOCYTES # (AUTO) 1.3 10^3/uL (1.5-3.5); LYMPHOCYTES % (AUTO) 14.1 %; MEAN CORPUSCULAR HEMOGLOBIN 30.3 pg (27.0-31.0); MEAN CORPUSCULAR HGB CONC 32.9 g/dL (32.0-36.0); MEAN CORPUSCULAR VOLUME 92.3 fL (80.0-94.0); MEAN PLATELET VOLUME 10.1 fL (7.4-11.4); MONOCYTES # (AUTO) 0.7 10^3/uL (0.0-1.0); NEUTROPHILS # (AUTO) 6.6 10^3/uL (1.5-6.6); NEUTROPHILS % (AUTO) 71.6 %; PLT - PLATELET COUNT 315 10^3/uL (130-450); RED BLOOD COUNT 4.65 10^6/uL (4.70-6.10); RED CELL DISTRIBUTION WIDTH 12.9 % (12.0-15.0); WHITE BLOOD COUNT 9.2 x10^3/uL (4.8-10.8)
[2020-11-09 20:59] LABS: ALBUMIN 4.1 g/dL (3.2-5.5); ALBUMIN/GLOBULIN RATIO 1.2 (1.0-2.2); BILIRUBIN,TOTAL 0.7 mg/dL (0.2-1.0); CALCIUM 9.4 mg/dL (8.5-10.3); CREATININE 1.4 mg/dL (0.6-1.2); POTASSIUM 4.3 mmol/L (3.5-5.0); TOTAL PROTEIN 7.6 g/dL (6.7-8.2)
== END 2020-11-09 16:50 | disposition home or self-care (01) ==
LOC: LAB.N 16:49
PROVIDERS: ATTEND Physician Assistant Medical
DX: N28.9 Disorder of kidney and ureter, unspecified (principal); D64.9 Anemia, unspecified
CPT/HCPCS: 36415; 80053; 85025

== ENCOUNTER 2021-02-09 14:06 | Outpatient (CLI) | payer MEDICARE, OTHER ==
--- NOTE | 2021-02-09 14:41 | XRAY Report ---
PROCEDURE: Chest 2 View X-Ray INDICATIONS: COPD TECHNIQUE: 2 view(s) of the chest. COMPARISON: 04/17/2020. FINDINGS: Surgical changes and devices: None. Lungs and pleura: No pleural effusions or pneumothorax. There is hyperinflation. No focal infiltrate . Mediastinum: Mildly tortuous thoracic aorta is seen. Heart size is normal. Bones and chest wall: No suspicious bony abnormalities. Soft tissues appear unremarkable. IMPRESSION: No acute cardiopulmonary pathology. COPD. Reviewed by: Fede Jernigan MD on 02/09/2021 2:39 PM PDT Approved by: Fede Jernigan MD on 02/09/2021 2:39 PM PDT Station ID: [id number]
== END 2021-02-09 14:07 | disposition home or self-care (01) ==
LOC: DI 14:06
PROVIDERS: ATTEND Physician Assistant Medical
DX: J44.9 Chronic obstructive pulmonary disease, unspecified (principal)

== ENCOUNTER 2021-03-26 15:37 | Outpatient (CLI) | payer MEDICARE, OTHER ==
[2021-03-26 16:16] LABS: BASOPHILS # (AUTO) 0.1 10^3/uL (0.0-0.1); BASOPHILS % (AUTO) 0.6 %; EOSINOPHILS # (AUTO) 0.4 10^3/uL (0.0-0.7); EOSINOPHILS % (AUTO) 5.3 %; HCT - HEMATOCRIT 40.9 % (42.0-52.0); HGB - HEMOGLOBIN 13.3 g/dL (14.0-18.0); LYMPHOCYTES # (AUTO) 1.1 10^3/uL (1.5-3.5); LYMPHOCYTES % (AUTO) 13.3 %; MEAN CORPUSCULAR HEMOGLOBIN 30.1 pg (27.0-31.0); MEAN CORPUSCULAR HGB CONC 32.5 g/dL (32.0-36.0); MEAN CORPUSCULAR VOLUME 92.5 fL (80.0-94.0); MEAN PLATELET VOLUME 9.5 fL (7.4-11.4); MONOCYTES # (AUTO) 0.6 10^3/uL (0.0-1.0); MONOCYTES % (AUTO) 7.5 %; NEUTROPHILS # (AUTO) 5.9 10^3/uL (1.5-6.6); NEUTROPHILS % (AUTO) 72.8 %; PLT - PLATELET COUNT 236 10^3/uL (130-450); RED BLOOD COUNT 4.42 10^6/uL (4.70-6.10); RED CELL DISTRIBUTION WIDTH 13.1 % (12.0-15.0); WHITE BLOOD COUNT 8.1 x10^3/uL (4.8-10.8)
[2021-03-26 16:27] LABS: ALBUMIN 4.2 g/dL (3.2-5.5); ALBUMIN/GLOBULIN RATIO 1.4 (1.0-2.2); BILIRUBIN,TOTAL 0.5 mg/dL (0.2-1.0); CALCIUM 8.9 mg/dL (8.5-10.3); CREATININE 1.2 mg/dL (0.6-1.2); POTASSIUM 3.6 mmol/L (3.5-5.0); TOTAL PROTEIN 7.3 g/dL (6.7-8.2)
== END 2021-03-26 15:38 | disposition home or self-care (01) ==
LOC: LAB 15:37
PROVIDERS: ATTEND Nurse Practitioner
DX: Z79.899 Other long term (current) drug therapy (principal)
CPT/HCPCS: 36415; 80053; 85025

== ENCOUNTER 2021-04-05 09:01 | Outpatient (CLI) | payer MEDICARE, OTHER ==
[2021-04-07 10:16] LABS: ANA SCREEN NEGATIVE (NEGATIVE)
== END 2021-04-05 09:02 | disposition home or self-care (01) ==
LOC: LAB 09:01
PROVIDERS: ATTEND Nurse Practitioner Family
DX: R21 Rash and other nonspecific skin eruption (principal)
CPT/HCPCS: 36415; 86038

== ENCOUNTER 2023-03-09 07:15 | Outpatient (CLI) | payer MEDICARE, OTHER | END 2023-03-09 07:16 | disposition critical access hospital (66) | LOC: EMS 07:15 | DX: R06.2 Wheezing (principal); R61 Generalized hyperhidrosis; R53.1 Weakness; R06.03 Acute respiratory distress | CPT/HCPCS: A0425; A0427 ==

== ENCOUNTER 2023-03-09 08:08 | Emergency (ER) | payer MEDICARE, OTHER ==
[2023-03-09 08:48] LABS: BASOPHILS # (AUTO) 0.1 10^3/uL (0.0-0.1); BASOPHILS % (AUTO) 0.5 %; EOSINOPHILS # (AUTO) 0.1 10^3/uL (0.0-0.7); EOSINOPHILS % (AUTO) 1.3 %; HCT - HEMATOCRIT 42.2 % (42.0-52.0); HGB - HEMOGLOBIN 13.3 g/dL (14.0-18.0); LYMPHOCYTES # (AUTO) 0.7 10^3/uL (1.5-3.5); MEAN CORPUSCULAR HEMOGLOBIN 28.7 pg (27.0-31.0); MEAN CORPUSCULAR HGB CONC 31.5 g/dL (32.0-36.0); MEAN CORPUSCULAR VOLUME 91.1 fL (80.0-94.0); MEAN PLATELET VOLUME 9.6 fL (7.4-11.4); MONOCYTES # (AUTO) 0.5 10^3/uL (0.0-1.0); MONOCYTES % (AUTO) 5.5 %; NEUTROPHILS # (AUTO) 8.4 10^3/uL (1.5-6.6); NEUTROPHILS % (AUTO) 85.1 %; PLT - PLATELET COUNT 212 10^3/uL (130-450); RED BLOOD COUNT 4.63 10^6/uL (4.70-6.10); RED CELL DISTRIBUTION WIDTH 12.8 % (12.0-15.0); WHITE BLOOD COUNT 9.9 x10^3/uL (4.8-10.8)
[2023-03-09 09:01] LABS: ALBUMIN 4.2 g/dL (3.2-5.5); ALBUMIN/GLOBULIN RATIO 1.4 (1.0-2.2); BILIRUBIN,TOTAL 0.7 mg/dL (0.2-1.0); CALCIUM 9.2 mg/dL (8.5-10.3); CREATININE 1.4 mg/dL (0.6-1.3); POTASSIUM 4.3 mmol/L (3.5-4.5); TOTAL PROTEIN 7.2 g/dL (6.4-8.9)
--- NOTE | 2023-03-09 09:50 | XRAY Report ---
PROCEDURE: Chest 1 View X-Ray INDICATIONS: SOA TECHNIQUE: One view of the chest was acquired. COMPARISON: 1021 FINDINGS: Surgical changes and devices: None. Lungs and pleura: No pleural effusions or pneumothorax. Lungs are clear. Mediastinum: The aorta is prominent and tortuous. The cardiac contours are within normal limits. Bones and chest wall: No suspicious bony lesions. Age-appropriate degenerative changes are seen. Overlying soft tissues appear unremarkable. IMPRESSION: Portable chest within normal limits for age. Reviewed by: Geovanny Anna MD on 03/09/2023 8:49 AM [facility] Approved by: Geovanny Anna MD on 03/09/2023 8:49 AM [facility] Station ID: [id number]
[2023-03-09 09:51] LABS: B. PARAPERTUSSIS- RESP PCR PAN NOT DETECTED; B. PERTUSSIS- RESP PCR PANEL NOT DETECTED; C. PNEUMONIAE- RESP PCR PANEL NOT DETECTED; CORONAVIRUS 229E-RESP PCR NOT DETECTED; CORONAVIRUS HKU1-RESP PCR NOT DETECTED; CORONAVIRUS NL63-RESP PCR NOT DETECTED; CORONAVIRUS OC43-RESP PCR NOT DETECTED; HUMAN METAPNEUMOVIRUS NOT DETECTED; INFLUENZA A- RESP PCR PANEL NOT DETECTED; INFLUENZA B - RESP PCR PANEL NOT DETECTED; M. PNEUMONIAE- RESP PCR PANEL NOT DETECTED; PARAINFLUENZA VIRUS 1 NOT DETECTED; PARAINFLUENZA VIRUS 2 NOT DETECTED; PARAINFLUENZA VIRUS 3 NOT DETECTED; PARAINFLUENZA VIRUS 4 NOT DETECTED; RHINOVIRUS/ENTEROVIRUS NOT DETECTED; RSV- RESP PCR PANEL NOT DETECTED; SARS-CoV-2 -RESP PCR PANEL NOT DETECTED
--- NOTE | 2023-03-09 10:31 | ED Physician Documentation ---
PD HPI DYSPNEA - Stated complaint Stated Complaint: SOA - Chief complaint Chief Complaint: Resp - History obtained from History obtained from: Patient, Family - Additional information Additional information: Patient is an 82-year-old male with a history of COPD on home oxygen presenting for evaluation of increased shortness of air this morning. Per his she found him at this morning without his oxygen on and he seemed more short of air. She helped put it back on and then helped him ambulate to the bathroom but then found him leaning over on the toilet having worsening shortness of air. Upon EMS arrival they noted that his sats were in the mid 80s on his home oxygen at 2 L. states that he usually wears 2-1/2 to 3 L. He was given 1 DuoNeb and 1 albuterol treatment as well as 125 of Solu-Medrol. Patient now states that his breathing is back to his baseline. He denies worsening cough, fever, leg swelling or pain. No chest pain. Review of Systems Constitutional: denies: Fever Cardiac: denies: Chest pain / pressure Respiratory: reports: Dyspnea, Cough Musculoskeletal: denies: Extremity swelling Neurologic: denies: Syncope PD PAST MEDICAL HISTORY - Past Medical History Past Medical History: Yes Cardiovascular: Hypertension, Coronary artery disease, [place], Other Respiratory: Asthma, COPD, Other Neuro: None Endocrine/Autoimmune: None GI: Ulcers, Other : Other HEENT: None Psych: None Musculoskeletal: Osteoarthritis Derm: Eczema, Other Other Past Medical History: prostate cancer - Past Surgical History Past Surgical History: Yes General: Colonoscopy - Present Medications Home Medications: Ambulatory Orders Medication Instructions Recorded Confirmed Metoprolol Tartrate 100 mg PO DAILY 09/19/13 03/09/23 Simvastatin [Zocor] 20 mg PO DAILY 09/19/13 11/20/15 hydroCHLOROthiazide 25 mg PO DAILY 09/19/13 03/09/23 [Hydrochlorothiazide] lisinopriL [Prinivil] 20 mg PO DAILY 09/19/13 03/09/23 Aspirin [Aspir-Low] 81 mg PO DAILY 08/14/15 03/09/23 Albuterol 0.5 mg INH DAILY 02/08/20 03/09/23 Cholecalciferol (Vitamin D3) 125 mcg PO DAILY 02/08/20 03/09/23 [Vitamin D3] Guaifenesin/Dextromethorphan 1 each PO DAILY 02/08/20 03/09/23 [Mucinex Dm ER 1,200-60 mg Tab] Omeprazole 20 mg PO DAILY 02/08/20 02/08/20 Potassium Chloride [Micro-K] 20 meq PO DAILY 02/08/20 02/08/20 methocarbamoL [Robaxin-750] 750 mg PO TID PRN 02/08/20 03/09/23 Budesonide [Pulmicort] 0.25 mg IH DAILY 04/05/20 04/05/20 Ipratropium/Albuterol [Duoneb] 1 neb IH TID 04/05/20 03/09/23 Albuterol Sulf [Ventolin Hfa 1 - 2 puffs INH Q4HR PRN 03/09/23 03/09/23 Inhaler] predniSONE [Deltasone] 60 mg PO DAILY 5 Days #15 tablet 03/09/23 - Allergies Allergies/Adverse Reactions: Allergies Allergy/AdvReac Type Severity Reaction Status Date / Time formoterol [From Dulera] Allergy Unknown Verified 03/09/23 08:18 mometasone furoate Allergy Unknown Verified 03/09/23 08:18 [From Dulera] narcotic sensative AdvReac Nausea Uncoded 04/17/20 10:43 - Social History Does the pt smoke?: No Smoking Status: Former smoker Does the pt drink ETOH?: No Does the pt have substance abuse?: No - Immunizations Immunizations are current?: Yes - POLST Patient has POLST: No PD ED PE NORMAL - General General: Alert and oriented X 3, No acute distress, Well developed/nourished - HEENT HEENT: Atraumatic, Moist mucous membranes, Pharynx benign - Neck Neck: Supple, no meningeal sign - Cardiac Cardiac: RRR, No murmur - Respiratory Respiratory: No respiratory distress, Other (Mild expiratory wheezing) - Abdomen Abdomen: Normal bowel sounds, Soft, Non tender, Non distended, Other (Easily reducible ventral wall hernia) - Derm Derm: Warm and dry - Extremities Extremities: No edema, No calf tenderness / cord - Neuro Neuro: Normal speech Results - Vitals Vitals: Vital Signs - 24 hr 03/09/23 03/09/23 03/09/23 08:18 09:19 09:30 Temperature 37.2 C Heart Rate 89 86 86 Respiratory 20 20 20 Rate Blood Pressure 137/89 H 136/76 H 129/85 H O2 Saturation 94 96 96 If not protocol 2 2 : Oxygen Flow, liters/minute 03/09/23 03/09/23 10:00 10:44 Temperature Heart Rate 83 82 Respiratory 24 20 Rate Blood Pressure 145/70 H 138/84 H O2 Saturation 93 99 If not protocol 2 : Oxygen Flow, liters/minute Oxygen O2 Source Room air Oxygen Flow Rate 2 - EKG (time done) 0952 EKG releavant findings:: EKG personally interpreted by author of this note. Relevant findings are: Rate 89, normal sinus rhythm, no STEMI, no ST depressions - Labs Labs: Laboratory Tests 03/09/23 03/09/23 03/09/23 08:37 08:37 08:50 WBC 9.9 RBC 4.63 L Hgb 13.3 L Hct 42.2 MCV 91.1 MCH 28.7 MCHC 31.5 L RDW 12.8 Plt Count 212 MPV 9.6 Neut # (Auto) 8.4 H Lymph # (Auto) 0.7 L Chambers # (Auto) 0.5 Eos # (Auto) 0.1 Baso # (Auto) 0.1 Absolute Nucleated RBC 0.00 Nucleated RBC % 0.0 Sodium 137 Potassium 4.3 Chloride 101 Carbon Dioxide 29 Anion Gap 7.0 BUN 15 Creatinine 1.4 H Estimated GFR (MDRD) 49 L Glucose 144 H Calcium 9.2 Total Bilirubin 0.7 AST 15 ALT 10 Alkaline Phosphatase 89 Total Protein 7.2 Albumin 4.2 Globulin 3.0 Albumin/Globulin Ratio 1.4 Nasal Adenovirus (PCR) NOT DETECTED Nasal B. parapertussis DNA (PCR) NOT DETECTED Nasal Coronavir 229E PCR NOT DETECTED Nasal Coronavir HKU1 PCR NOT DETECTED Nasal Coronavir NL63 PCR NOT DETECTED Nasal Coronavir OC43 PCR NOT DETECTED Nasal Enterovir/Rhinovir PCR NOT DETECTED Nasal Influenza B PCR NOT DETECTED Nasal Influenza A PCR NOT DETECTED Nasal Parainfluen 1 PCR NOT DETECTED Nasal Parainfluen 2 PCR NOT DETECTED Nasal Parainfluen 3 PCR NOT DETECTED Nasal Parainfluen 4 PCR NOT DETECTED Nasal RSV (PCR) NOT DETECTED Nasal B.pertussis DNA PCR NOT DETECTED Nasal C.pneumoniae (PCR) NOT DETECTED Humberto Human Metapneumo PCR NOT DETECTED Nasal M.pneumoniae (PCR) NOT DETECTED Nasal SARS-CoV-2 (PCR) NOT DETECTED PD Medical Decision Making - ED course Complexity details: reviewed results, re-evaluated patient, d/w patient, d/w family ED course: Patient is an 82-year-old male with a history of COPD on home oxygen presenting for evaluation of worsening shortness of air. He was already administered 2 neb treatments as well as Solu-Medrol prior to arrival reports his breathing feels back to baseline. His vital signs are stable and he is doing well on his home oxygen requirements. Chest x-ray which I reviewed is negative for consolidation. CBC and chemistries are unremarkable. No chest pain. EKG is nonischemic. Patient was monitored without any recurrence of his symptoms. He was started on prednisone. His respiratory swab is negative. No signs of bacterial infection. The patient counseled on treatment plan for COPD flare as well as need to be compliant with his oxygen use. Patient and family are counseled on concerning symptoms to return for. Departure - Departure Disposition: 01 Home, Self Care Clinical Impression: COPD with exacerbation Condition: Stable Instructions: ED COPD Flare Prescriptions: predniSONE [Deltasone] 60 mg PO DAILY 5 Days #15 tablet Comments: You were treated for a COPD exacerbation. I have sent your prescription for a course of steroids to [facility] in [place]. Please make sure to take this as directed. Please wear your oxygen as directed. Return to the ER with any worsening symptoms. Forms: PCP List Discharge Date/Time: 03/09/23 10:55
[2023-03-09 10:47] VITALS: BP 138/84; O2SAT 99
== END 2023-03-09 10:55 | disposition home or self-care (01) ==
LOC: EDUNIT# → ED 08:08
DX: J44.1 Chronic obstructive pulmonary disease with (acute) exacerbation (principal); I10 Essential (primary) hypertension; I25.10 Atherosclerotic heart disease of native coronary artery without angina pectoris; I25.2 Old myocardial infarction; Z99.81 Dependence on supplemental oxygen; Z87.891 Personal history of nicotine dependence; Z20.822 Contact with and (suspected) exposure to COVID-19; Z79.899 Other long term (current) drug therapy; Z79.82 Long term (current) use of aspirin
CPT/HCPCS: 36415; 80053; 85025; 87633; 93005; 99284

== ENCOUNTER 2023-07-10 09:55 | Outpatient (CLI) | payer MEDICARE, OTHER ==
[2023-07-10 10:08] LABS: BASOPHILS # (AUTO) 0.1 10^3/uL (0.0-0.1); BASOPHILS % (AUTO) 0.8 %; EOSINOPHILS # (AUTO) 0.3 10^3/uL (0.0-0.7); EOSINOPHILS % (AUTO) 4.2 %; HCT - HEMATOCRIT 42.2 % (42.0-52.0); HGB - HEMOGLOBIN 13.3 g/dL (14.0-18.0); LYMPHOCYTES # (AUTO) 1.1 10^3/uL (1.5-3.5); LYMPHOCYTES % (AUTO) 15.9 %; MEAN CORPUSCULAR HEMOGLOBIN 28.4 pg (27.0-31.0); MEAN CORPUSCULAR HGB CONC 31.5 g/dL (32.0-36.0); MEAN CORPUSCULAR VOLUME 90.2 fL (80.0-94.0); MEAN PLATELET VOLUME 9.3 fL (7.4-11.4); MONOCYTES # (AUTO) 0.5 10^3/uL (0.0-1.0); MONOCYTES % (AUTO) 7.5 %; NEUTROPHILS # (AUTO) 5.1 10^3/uL (1.5-6.6); NEUTROPHILS % (AUTO) 71.2 %; PLT - PLATELET COUNT 250 10^3/uL (130-450); RED BLOOD COUNT 4.68 10^6/uL (4.70-6.10); RED CELL DISTRIBUTION WIDTH 12.5 % (12.0-15.0); WHITE BLOOD COUNT 7.2 x10^3/uL (4.8-10.8)
[2023-07-10 10:17] LABS: ESTIMATED AVERAGE GLUCOSE 148 mg/dL (70-100); HEMOGLOBIN A1c% 6.8 % (4.27-6.07)
[2023-07-10 10:27] LABS: ALBUMIN 4.1 g/dL (3.2-5.5); ALBUMIN/GLOBULIN RATIO 1.5 (1.0-2.2); ALKALINE PHOSPHATASE 97 IU/L (42-121); ALT ALANINE AMINOTRANSFERASE 10 IU/L (10-60); AST ASPARTATE AMINOTRANSFERASE 15 IU/L (10-42); BILIRUBIN,TOTAL 0.5 mg/dL (0.2-1.0); BUN - BLOOD UREA NITROGEN 17 mg/dL (6-20); CALCIUM 9.5 mg/dL (8.5-10.3); CARBON DIOXIDE - CO2 30 mmol/L (21-32); CHLORIDE 101 mmol/L (101-111); CHOL/HDL RATIO 2.7 (<5.0); CHOLESTEROL 126 mg/dL; CREATININE 1.4 mg/dL (0.6-1.3); GFR - MDRD 49 (>89); GLUCOSE 132 mg/dL (74-104); HDL CHOLESTEROL 47 mg/dL; LDL CHOLESTEROL,CALCULATED 50 mg/dL; LDL/HDL RATIO 1.1 (<3.6); POTASSIUM 4.3 mmol/L (3.5-4.5); SODIUM 137 mmol/L (135-145); TOTAL PROTEIN 6.8 g/dL (6.4-8.9); TRIGLYCERIDES 145 mg/dL (48-352); VLDL CHOLESTEROL 29 mg/dL
== END 2023-07-10 09:56 | disposition home or self-care (01) ==
LOC: LAB 09:55
PROVIDERS: ATTEND Physician Assistant Medical
DX: E78.5 Hyperlipidemia, unspecified (principal); R73.9 Hyperglycemia, unspecified; J30.9 Allergic rhinitis, unspecified
CPT/HCPCS: 36415; 80053; 80061; 83036; 83721; 85025

== ENCOUNTER 2023-07-29 12:00 | Outpatient (CLI) | payer MEDICARE, OTHER | END 2023-07-29 23:59 | disposition home or self-care (01) | LOC: PC 12:00 | PROVIDERS: ATTEND Nurse Practitioner Gerontology | DX: Z51.5 Encounter for palliative care (principal); J44.1 Chronic obstructive pulmonary disease with (acute) exacerbation; J40 Bronchitis, not specified as acute or chronic; E11.9 Type 2 diabetes mellitus without complications; R41.3 Other amnesia; M17.0 Bilateral primary osteoarthritis of knee; I10 Essential (primary) hypertension; I25.2 Old myocardial infarction; E66.9 Obesity, unspecified; Z71.89 Other specified counseling; Z99.81 Dependence on supplemental oxygen; Z87.891 Personal history of nicotine dependence; Z74.1 Need for assistance with personal care; Z63.8 Other specified problems related to primary support group; Z91.81 History of falling | CPT/HCPCS: 99345 ==

== ENCOUNTER 2023-08-08 08:00 | Outpatient (CLI) | payer MEDICARE, OTHER | END 2023-08-08 23:59 | disposition home or self-care (01) | LOC: LAB.R 08:00 | PROVIDERS: ATTEND Nurse Practitioner Gerontology | DX: J40 Bronchitis, not specified as acute or chronic (principal) | CPT/HCPCS: 87070; 87077; 87205 ==

== ENCOUNTER 2023-08-25 08:00 | Outpatient (CLI) | payer MEDICARE, OTHER | END 2023-08-25 08:01 | disposition home or self-care (01) | LOC: PC 08:00 | PROVIDERS: ATTEND Nurse Practitioner Gerontology | DX: Z51.5 Encounter for palliative care (principal); J44.9 Chronic obstructive pulmonary disease, unspecified; J40 Bronchitis, not specified as acute or chronic; Z99.81 Dependence on supplemental oxygen; Z79.899 Other long term (current) drug therapy; Z79.51 Long term (current) use of inhaled steroids; Z87.891 Personal history of nicotine dependence; Z74.09 Other reduced mobility; Z74.1 Need for assistance with personal care; E11.9 Type 2 diabetes mellitus without complications; Z63.8 Other specified problems related to primary support group; Z66 Do not resuscitate | CPT/HCPCS: 99350 ==

== ENCOUNTER 2023-09-24 08:00 | Outpatient (CLI) | payer MEDICARE, OTHER | END 2023-09-24 23:59 | disposition home or self-care (01) | LOC: PC 08:00 | PROVIDERS: ATTEND Nurse Practitioner Gerontology | DX: Z51.5 Encounter for palliative care (principal); J40 Bronchitis, not specified as acute or chronic; J44.9 Chronic obstructive pulmonary disease, unspecified; M17.9 Osteoarthritis of knee, unspecified; E11.9 Type 2 diabetes mellitus without complications; Z91.81 History of falling | CPT/HCPCS: 99349 ==

== ENCOUNTER 2023-09-29 20:42 | Outpatient (CLI) | payer MEDICARE, OTHER | END 2023-09-29 23:59 | disposition EMS.NT | LOC: EMS 20:42 | DX: Z03.89 Encounter for observation for other suspected diseases and conditions ruled out (principal) ==

== ENCOUNTER 2023-10-31 11:51 | Outpatient (CLI) | payer MEDICARE, OTHER ==
[2023-10-31 12:29] LABS: CALCIUM 9.6 mg/dL (8.5-10.3); CREATININE 1.5 mg/dL (0.6-1.3); POTASSIUM 4.4 mmol/L (3.5-4.5)
[2023-10-31 12:40] LABS: ESTIMATED AVERAGE GLUCOSE 126 mg/dL (70-100)
[2023-10-31 15:45] LABS: CREATININE,URINE 132.7 mg/dL; MICROALBUM/CREATININE RATIO,UR 14.3 ug/mg (<30.0); MICROALBUMIN,URINE 1.9 mg/dL
== END 2023-10-31 11:52 | disposition home or self-care (01) ==
LOC: LAB 11:51
PROVIDERS: ATTEND Nurse Practitioner Gerontology
DX: E11.9 Type 2 diabetes mellitus without complications (principal)
CPT/HCPCS: 36415; 80048; 82043; 82570; 83036

== ENCOUNTER 2023-11-19 08:00 | Outpatient (CLI) | payer MEDICARE, OTHER | END 2023-11-19 23:59 | disposition home or self-care (01) | LOC: PC 08:00 | PROVIDERS: ATTEND Nurse Practitioner Gerontology | DX: Z51.5 Encounter for palliative care (principal); C43.4 Malignant melanoma of scalp and neck; J44.9 Chronic obstructive pulmonary disease, unspecified; I25.10 Atherosclerotic heart disease of native coronary artery without angina pectoris; N18.31 Chronic kidney disease, stage 3a; I12.9 Hypertensive chronic kidney disease with stage 1 through stage 4 chronic kidney disease, or unspecified chronic kidney disease; N18.30 Chronic kidney disease, stage 3 unspecified; E11.22 Type 2 diabetes mellitus with diabetic chronic kidney disease; Z71.89 Other specified counseling; Z87.891 Personal history of nicotine dependence | CPT/HCPCS: 99350 ==

== ENCOUNTER 2023-12-13 07:53 | Outpatient (CLI) | payer MEDICARE, OTHER | END 2023-12-13 23:59 | disposition EMS.NT | LOC: EMS 07:53 | DX: Z04.3 Encounter for examination and observation following other accident (principal); R61 Generalized hyperhidrosis; I10 Essential (primary) hypertension ==

== ENCOUNTER 2024-01-25 10:13 | Outpatient (CLI) | payer MEDICARE, OTHER | END 2024-01-25 23:59 | disposition EMS.NT | LOC: EMS 10:13 | DX: R31.9 Hematuria, unspecified (principal) ==

== ENCOUNTER 2024-01-25 10:53 | Emergency (ER) | payer MEDICARE, OTHER ==
--- NOTE | 2024-01-25 12:29 | ED Physician Documentation ---
History of Present Illness - Stated complaint Stated Complaint: MALE , BLEEDING AND BURNING - Chief complaint Chief Complaint: General - History obtained from History obtained from: Patient, Family - Additonal information Additional information: 83-year-old gentleman presents by private vehicle with his . He has a history of TURP remotely and prostate cancer with radiation. Starting this mor jorge he has had a sensation of incomplete bladder emptying with clots in his pull-ups. PD PAST MEDICAL HISTORY - Past Medical History Cardiovascular: Hypertension, Coronary artery disease, [place], Other Respiratory: Asthma, COPD, Other Neuro: None Endocrine/Autoimmune: None GI: Ulcers, Other : Other HEENT: None Psych: None Musculoskeletal: Osteoarthritis Derm: Eczema, Other - Past Surgical History Past Surgical History: Yes General: Colonoscopy - Present Medications Home Medications: Ambulatory Orders Medication Instructions Recorded Confirmed Metoprolol Tartrate 100 mg PO DAILY 09/19/13 03/09/23 Simvastatin [Zocor] 20 mg PO DAILY 09/19/13 11/20/15 hydroCHLOROthiazide 25 mg PO DAILY 09/19/13 03/09/23 [Hydrochlorothiazide] lisinopriL [Prinivil] 20 mg PO DAILY 09/19/13 03/09/23 Aspirin [Aspir-Low] 81 mg PO DAILY 08/14/15 03/09/23 Albuterol 0.5 mg INH DAILY 02/08/20 03/09/23 Cholecalciferol (Vitamin D3) 125 mcg PO DAILY 02/08/20 03/09/23 [Vitamin D3] Guaifenesin/Dextromethorphan 1 each PO DAILY 02/08/20 03/09/23 [Mucinex Dm ER 1,200-60 mg Tab] Omeprazole 20 mg PO DAILY 02/08/20 02/08/20 Potassium Chloride [Micro-K] 20 meq PO DAILY 02/08/20 02/08/20 methocarbamoL [Robaxin-750] 750 mg PO TID PRN 02/08/20 03/09/23 Budesonide [Pulmicort] 0.25 mg IH DAILY 04/05/20 04/05/20 Ipratropium/Albuterol [Duoneb] 1 neb IH TID 04/05/20 03/09/23 Albuterol Sulf [Ventolin Hfa 1 - 2 puffs INH Q4HR PRN 03/09/23 03/09/23 Inhaler] predniSONE [Deltasone] 60 mg PO DAILY 5 Days #15 tablet 03/09/23 - Allergies Allergies/Adverse Reactions: Allergies Allergy/AdvReac Type Severity Reaction Status Date / Time dupilumab [From Dupixent Pen] Allergy Respiratory Verified 01/25/24 11:16 formoterol [From Dulera] Allergy Unknown Verified 01/25/24 11:12 mometasone furoate Allergy Unknown Verified 01/25/24 11:12 [From Dulera] narcotic sensative AdvReac Nausea Uncoded 01/25/24 11:12 - Social History Does the pt smoke?: No Smoking Status: Never smoker Does the pt drink ETOH?: No Does the pt have substance abuse?: No - Immunizations Immunizations are current?: Yes - POLST Patient has POLST: No PD ED PE NORMAL - Vitals Vital signs reviewed: Yes - General General: Alert and oriented X 3, No acute distress - Abdomen Abdomen: Non tender - Back Back: No CVA TTP - Neuro Neuro: Alert and oriented X 3 Results - Vitals Vitals: Vital Signs - 24 hr 01/25/24 01/25/24 11:12 13:39 Temperature 36.4 C L 36.5 C Heart Rate 63 60 Respiratory 17 18 Rate Blood Pressure 184/95 H 150/88 H O2 Saturation 95 96 Oxygen O2 Source Room air - Labs Labs: Laboratory Tests 01/25/24 13:20 Free PSA < 0.005 L PD Medical Decision Making - ED course ED course: 83-year-old gentleman with history of remote prostate cancer presents with gross hematuria but no obvious evidence of retention. Bladder scan was 0 and I confirmed this with bedside ultrasound. His symptoms are not consistent with infection, and he will need to follow-up cystoscopy I think. That said I do not see an urgent reason for cystoscopy. I did send a PSA from here though since he has not been having routine PSAs to aid in his follow-up. Departure - Departure Disposition: 01 Home, Self Care Clinical Impression: Gross hematuria Condition: Good Record reviewed to determine appropriate education?: Yes Instructions: ED Hematuria Follow-Up: Quan Hubbard MD [Provider Admit Priv/Credential] - Comments: You are seen today for hematuria AKA blood in the urine. There are a variety of causes of this, most likely related to the prostate but she will need to have a cystoscopy and follow-up I think with Dr. Hubbard. Call his office tomorrow. I did send off a PSA to aid in follow-up. Drink plenty of fluids to keep your urine thin so you do not get obstructed and do return if worse. Forms: PCP List Discharge Date/Time: 01/25/24 13:39
[2024-01-25 13:40] VITALS: BP 150/88; O2SAT 96
== END 2024-01-25 13:39 | disposition home or self-care (01) ==
LOC: ED 10:53
DX: R31.0 Gross hematuria (principal)
CPT/HCPCS: 36415; 51798; 84154; 99282; 99283